=== PATIENT | female | born 2000 | race Caucasian/White ===

== ENCOUNTER 2018-05-23 10:06 | Day surgery (SDC) | payer OTHER ==
[2018-05-23] MEDS ORDERED: BUPIVACAINE 0.25% (MPF) 30 ML INJ (13:07)
[2018-05-23] MEDS ORDERED: ONDANSETRON 4 MG INJ IV (13:30)
[2018-05-23] MEDS ORDERED: MEPERIDINE 25 MG INJ IV (13:30)
[2018-05-23] MEDS ORDERED: OXYCODONE/ACETAMINOPHEN (5/325) TAB PO ×2 (13:30)
[2018-05-23] MEDS ORDERED: HYDROmorphONE 1 MG/5 ML IV SYRINGE IV ×3 (13:30)
[2018-05-23] MEDS ORDERED: MIDAZOLAM 1 MG/ML 2 ML INJ IV (13:30)
[2018-05-23] MEDS ORDERED: DIPHENHYDRAMINE 50 MG INJ IV (13:30)
[2018-05-23] MEDS: BUPIVACAINE 0.25% (MPF) 30 ML INJ INJ ×2 (13:42)
[2018-05-23] MEDS: HYDROCODONE/APAP (5/325) TAB PO (14:48)
== END 2018-05-23 16:00 | disposition home or self-care (01) ==
LOC: SDS 10:06
DX: D24.1 Benign neoplasm of right breast (principal)
CPT/HCPCS: 19120; 84703; 88307